=== PATIENT | male | born 1950 | race American Indian/Alaskan Native ===

== ENCOUNTER 2018-04-02 23:50 | Inpatient (IN) | payer MEDICARE ==
[2018-04-03] MEDS ORDERED: NACL 0.9% 1000 ML IV ONE (00:14)
--- NOTE | 2018-04-03 00:31 | Emergency Department Report ---
HPI - General Chief Complaint: Dyspnea/Respdistress Time Seen by Provider: 04/03/18 00:06 - HPI HPI: Room 20 The patient is a 68-year-old male presenting with a chief complaint of shortness of breath. Patient began complaining of shortness of breath yesterday. Patient had a cough productive of clear sputum. Family states patient stayed in bed all day today and did not want to come to the hospital. states the patient had a subjective fever. Yesterday the patient began complaining of substernal chest tightness that has been constant but currently not present. The patient has exhibited dyspnea on exertion. He denies any recent flights or long car trips. Patient denies any other forms of pain Location: Lungs, chest Duration: [See above] Quality: Tightness, shortness of breath Severity: Moderate Modifying factors: [see above] Context: [see above] Mode of transportation: [not driving] ED Past Medical Hx - Past Medical History Previous Medical History?: Yes Hx Diabetes: Yes Additional medical history: Hypercholesterolemia - Surgical History Past Surgical History?: No - Family History Family history: no significant - Social History Smoking Status: Former Smoker (none since 1984) Substance Use Type: None - Medications Home Medications: Home Medications Medication Instructions Recorded Confirmed Last Taken Type Cimetidine 300 mg PO BID 04/03/18 04/03/18 Unknown History Glipizide 5 mg PO DAILY 04/03/18 04/03/18 Unknown History Losartan 100 mg PO DAILY 04/03/18 04/03/18 Unknown History Mirtazapine 30 mg PO HS 04/03/18 04/03/18 Unknown History Pravastatin 20 mg PO HS 04/03/18 04/03/18 Unknown History Tamsulosin 0.4 mg PO DAILY 04/03/18 04/03/18 Unknown History ED Review of Systems ROS: Stated complaint: SHORTNESS OF BREATH Other details as noted in HPI Constitutional: fever (subjective) Eyes: denies: eye pain ENT: denies: throat pain Respiratory: shortness of breath, SOB with exertion Cardiovascular: chest pain Gastrointestinal: denies: abdominal pain Genitourinary: denies: dysuria Musculoskeletal: denies: back pain Neurological: denies: headache Physical Exam - Physical Exam Vital Signs: Vital Signs 04/02/18 23:59 Temperature 97.9 F Pulse Rate 129 H Respiratory 16 Rate Blood Pressure 114/79 O2 Sat by Pulse 96 Oximetry Physical Exam: GENERAL: The patient is well-developed well-nourished male sitting on stretcher receiving BiPAP exhibiting moderate respiratory distress. [] HEENT: Normocephalic. Atraumatic. Extraocular motions are intact. Patient has moist mucous membranes. NECK: Supple. Trachea midline CHEST/LUNGS: Clear to auscultation. There is increased work of breathing HEART/CARDIOVASCULAR: Regular. There is tachycardia. There is no gallop rub or murmur. ABDOMEN: Abdomen is soft, nontender. Patient has normal bowel sounds. There is no abdominal distention. SKIN: There is no rash. There is no edema. There is no diaphoresis. NEURO: The patient is awake, alert, and oriented. The patient is cooperative. The patient has normal speech MUSCULOSKELETAL:There is no evidence of acute injury. ED Course Vital Signs 04/02/18 23:59 Temperature 97.9 F Pulse Rate 129 H Respiratory 16 Rate Blood Pressure 114/79 O2 Sat by Pulse 96 Oximetry ED Medical Decision Making - Lab Data Result diagrams: 04/03/18 00:22 04/03/18 00:22 Laboratory Tests 04/03/18 04/03/18 04/03/18 00:10 00:22 00:22 WBC 21.1 H RBC 5.18 H Hgb 15.3 H Hct 46.1 H MCV 89 MCH 30 MCHC 33 RDW 16.1 H Plt Count 160 PT INR APTT POC ABG pH 7.423 POC ABG pCO2 26.4 L POC ABG pO2 63 L POC ABG HCO3 17.2 POC ABG Total CO2 18 POC ABG O2 Sat 93 POC ABG Base Excess -7 FiO2 80 Sodium 132 L Potassium 4.8 Chloride 98.7 Carbon Dioxide 19 L Anion Gap 19 BUN 23 H Creatinine 1.7 H Estimated GFR 48 BUN/Creatinine Ratio 14 Glucose 264 H Calcium 8.9 Total Creatine Kinase CK-MB (CK-2) CK-MB (CK-2) Rel Index Troponin T NT-Pro-B Natriuret Pep Triglycerides Cholesterol LDL Cholesterol Direct HDL Cholesterol Cholesterol/HDL Ratio 04/03/18 04/03/18 04/03/18 00:22 00:22 00:22 WBC RBC Hgb Hct MCV MCH MCHC RDW Plt Count PT 14.4 INR 1.06 APTT 22.8 L POC ABG pH POC ABG pCO2 POC ABG pO2 POC ABG HCO3 POC ABG Total CO2 POC ABG O2 Sat POC ABG Base Excess FiO2 Sodium Potassium Chloride Carbon Dioxide Anion Gap BUN Creatinine Estimated GFR BUN/Creatinine Ratio Glucose Calcium Total Creatine Kinase 122 CK-MB (CK-2) 3.6 CK-MB (CK-2) Rel Index 2.9 Troponin T 0.067 H NT-Pro-B Natriuret Pep 3510 H Triglycerides 147 Cholesterol 162 LDL Cholesterol Direct 87 HDL Cholesterol 62 H Cholesterol/HDL Ratio 2.61 - EKG Data -: EKG Interpreted by Me EKG shows normal: sinus rhythm Rate: tachycardia (127 bpm) - Radiology Data Radiology results: report reviewed (chest x-ray), image reviewed (chest x-ray) interpreted by me: Chest x-ray-left upper lobe haziness/pneumonia [facility] [address] [place] [address] XRay Report Signed Patient: ERNIN CHAUHAN MR#: [id number] : 1950 Acct:[id number] Age/Sex: 68 / M ADM Date: 04/02/18 Loc: ED Attending Dr: Ordering Physician: EVONNE MONK MD Date of Service: 04/02/18 Procedure(s): XR chest routine 2V Accession Number(s): [id number] cc: EVONNE MONK MD Fluoro Time In Minutes: FINAL REPORT EXAM: XR CHEST ROUTINE 2V HISTORY: Shortness of breath COMPARISON: None available. FINDINGS: Frontal view(s) of the chest obtained. Cardiac silhouette within normal limits. Patchy airspace consolidation left upper lobe concerning for pneumonia. Possible small left-sided pleural effusion. No pneumothorax. IMPRESSION: Left upper lobe consolidation concerning for pneumonia. Probable small left-sided pleural effusion. Followup exam suggested to ensure resolution. Transcribed By: LMA Dictated By: JOSEPH MILTON MD Electronically Authenticated By: JOSEPH MILTON MD Signed Date/Time: 04/03/18155 DD/ 5 TD/TT: 04/03/18155 - Differential Diagnosis pneumonia, ACS, PE, pericarditis, GERD, pneumothorax Critical care attestation.: If time is entered above; I have spent that time in minutes in the direct care of this critically ill patient, excluding procedure time. ED Disposition Clinical Impression: Hypoxia, Shortness of breath, Pneumonia, Leukocytosis, Renal insufficiency, Elevated troponin Disposition: DC-09 OP ADMIT IP TO THIS HOSP Is pt being admited?: Yes Does the pt Need Aspirin: No Condition: Serious Instructions: Bacterial Pneumonia (ED) Time of Disposition: 02:06 (hospitalist paged (Dr. Evangelina Wu))
[2018-04-03 00:51] LABS: INR 1.06 (0.87-1.13); Partial Thromboplastin Time 22.8 Sec. (24.2-36.6)
[2018-04-03 00:54] LABS: Hematocrit 46.1 % (35.5-45.6); Hemoglobin 15.3 gm/dl (11.8-15.2); Mean Corpuscular HGB Conc 33 % (32-34); Mean Corpuscular Hemoglobin 30 pg (28-32); Mean Corpuscular Volume 89 fl (84-94); Platelet Count 160 K/mm3 (140-440); Red Blood Count 5.18 M/mm3 (3.65-5.03); Red Cell Distribution Width 16.1 % (13.2-15.2)
[2018-04-03 00:58] LABS: Calcium 8.9 mg/dL (8.4-10.2)
[2018-04-03 01:00] LABS: Creatine Kinase MB 3.6 ng/mL (0.0-4.0)
[2018-04-03] MEDS ORDERED: PLAVIX PO ONE (01:22)
--- NOTE | 2018-04-03 02:00 | XRay Report ---
FINAL REPORT EXAM: XR CHEST ROUTINE 2V HISTORY: Shortness of breath COMPARISON: None available. FINDINGS: Frontal view(s) of the chest obtained. Cardiac silhouette within normal limits. Patchy airspace consolidation left upper lobe concerning for pneumonia. Possible small left-sided pleural effusion. No pneumothorax. IMPRESSION: Left upper lobe consolidation concerning for pneumonia. Probable small left-sided pleural effusion. Followup exam suggested to ensure resolution.
[2018-04-03 02:03] LABS: Chol/HDL Ratio 2.61 %
[2018-04-03] MEDS ORDERED: ZOFRAN IV PRN (02:56)
[2018-04-03] MEDS ORDERED: SODIUM CHLORIDE FLUSH SYRINGE 10 ML IV PRN (02:56)
[2018-04-03] MEDS ORDERED: TYLENOL PO PRN (02:56)
--- NOTE | 2018-04-03 03:13 | History and Physical Report ---
History of Present Illness Date of examination: 04/03/18 History of present illness: 68-year-old and a history of hypertension, diabetes, hyperlipidemia comes emergency room because he developed shortness of breath yesterday with dyspnea and exertion. Also complaining of a cough productive of clear phlegm, fever and chills, nausea. No weight loss, night sweats, hemoptysis, sick contacts Review of systems Constitutional: no weight loss, chills, fever Ears, eyes, nose, mouth and throat: no nasal congestion, no nasal discharge, no sinus pressure, no vision change, no red eye. Neck: No neck pain or rigidity. Cardiovascular: no chest pain, palpitations Respiratory: + cough, shortness of breath Gastrointestinal: no abdominal pain hematochezia Genitourinary : no frequency , no hematuria Musculoskeletal: no joint swelling or muscle ache Integumentary: no rash, no pruritis Neurological: no parathesias, no focal weakness Endocrine: no cold or heat intolerance, no polyuria or polydipsia Hematologic/Lymphatic: no easy bruising, no easy bleeding, no gland swelling Allergic/Immunologic: no urticaria, no angioedema. PAST MEDICAL HISTORY: Hypertension, diabetes, hyperlipidemia PAST SURGICAL HISTORY: None SOCIAL HISTORY: No alcohol, no drugs, tobacco FAMILY HISTORY: Hypertension Medications and Allergies Allergies Allergy/AdvReac Type Severity Reaction Status Date / Time No Known Allergies Allergy Verified 04/02/18 23:56 Home Medications Medication Instructions Recorded Confirmed Last Taken Type Cimetidine 300 mg PO BID 04/03/18 04/03/18 Unknown History Glipizide 5 mg PO DAILY 04/03/18 04/03/18 Unknown History Losartan 100 mg PO DAILY 04/03/18 04/03/18 Unknown History Mirtazapine 30 mg PO HS 04/03/18 04/03/18 Unknown History Pravastatin 20 mg PO HS 04/03/18 04/03/18 Unknown History Tamsulosin 0.4 mg PO DAILY 04/03/18 04/03/18 Unknown History Active Meds: Active Medications Azithromycin 500 mg/ Sodium (Chloride) 250 mls @ 250 mls/hr IV Q24HR TI Ceftriaxone Sodium (Rocephin/Ns 2 Gm/100 Ml) 2 gm in 100 mls @ 200 mls/hr IV Q24H TI; Protocol Exam - Physical Exam Narrative exam: Gen. appearance: Patient lying in bed, no apparent distress, on BiPAP HEENT: Normocephalic, atraumatic, pupils equally round and reactive to light, eyes are , extraocular movement intact, and no sclericterus,. No JVD or thyromegaly or nodule,neck supple, no carotid bruit ,mucous membranes moist, no exudate or erythema Heart: S1, S2, regular rate and rhythm Lungs: Crackles, breathing comfortable Abdomen: Positive bowel sounds,non tender, nondistended, no organomegaly Extremity:no edema cyanosis, clubbing Skin: no rash, dry, warm Neuro: Oriented 3, cranial nerves II-12 intact, speech is fluent, motor and sensory intact - Constitutional Vitals: Temp Pulse Resp BP Pulse Ox 97.9 F 107 H 16 136/82 96 04/02/18 23:59 04/03/18 02:00 04/03/18 02:00 04/03/18 02:00 04/03/18 02:00 Results - Labs CBC & Chem 7: 04/04/18 04:44 04/04/18 04:44 Labs: Abnormal lab results 04/03/18 04/03/18 04/03/18 Range/Units 00:10 00:22 00:22 WBC 21.1 H (4.5-11.0) K/mm3 RBC 5.18 H (3.65-5.03) M/mm3 Hgb 15.3 H (11.8-15.2) gm/dl Hct 46.1 H (35.5-45.6) % RDW 16.1 H (13.2-15.2) % APTT (24.2-36.6) Sec. POC ABG pCO2 26.4 L (35-45) POC ABG pO2 63 L (80-105) Sodium 132 L (137-145) mmol/L Carbon Dioxide 19 L (22-30) mmol/L BUN 23 H (9-20) mg/dL Creatinine 1.7 H (0.8-1.5) mg/dL Glucose 264 H (75-100) mg/dL Troponin T (0.00-0.029) ng/mL NT-Pro-B Natriuret Pep (0-900) pg/mL HDL Cholesterol (40-59) mg/dL 04/03/18 04/03/18 Range/Units 00:22 00:22 WBC (4.5-11.0) K/mm3 RBC (3.65-5.03) M/mm3 Hgb (11.8-15.2) gm/dl Hct (35.5-45.6) % RDW (13.2-15.2) % APTT 22.8 L (24.2-36.6) Sec. POC ABG pCO2 (35-45) POC ABG pO2 (80-105) Sodium (137-145) mmol/L Carbon Dioxide (22-30) mmol/L BUN (9-20) mg/dL Creatinine (0.8-1.5) mg/dL Glucose (75-100) mg/dL Troponin T 0.067 H (0.00-0.029) ng/mL NT-Pro-B Natriuret Pep 3510 H (0-900) pg/mL HDL Cholesterol 62 H (40-59) mg/dL - Imaging and Cardiology EKG: report reviewed Chest x-ray: report reviewed Assessment and Plan Assessment Sepsis Acute respiratory failure, hypoxic community-acquired pneumonia Hypertension Diabetes type 2 Hyperlipidemia Plan Admit to medicine Continue BiPAP, start IV antibiotics, follow cultures Check Fingersticks, cardiac enzymes initiate insulin sliding scale Start DVT prophylaxis, outpatient medications
[2018-04-03 05:04] LABS: Band Neutrophils # (Manual) 0.1 K/mm3; Basophils % (Manual) 0 % (0.0-1.8); Eosinophils % (Manual) 0 % (0.0-4.3); Monocytes % (Manual) 2.5 % (0.0-7.3); Myelocytes # (Manual) 0.1 K/mm3; Total Cells Counted 200
[2018-04-03 05:05] LABS: Platelet Estimate Consistent w Auto
[2018-04-03] MEDS ORDERED: NACL 0.45% 1000 ML 1,000 ML IV SCH (07:00)
[2018-04-03] MEDS ORDERED: ROCEPHIN/NS 2 GM/100 ML 2 GM/100 ML BAG IV SCH (08:00)
[2018-04-03] MEDS: DUONEB *Not for PRN Use IH SCH ×3 (08:29→19:37)
[2018-04-03] MEDS ORDERED: ROCEPHIN/NS 1 GM/50 ML 1 GM/50 ML BAG IV SCH (10:00)
[2018-04-03] MEDS ORDERED: ZITHROMAX 500 MG in NACL 0.9% 250ML 250 ML IV SCH (10:00)
[2018-04-03] MEDS ORDERED: LOVENOX SUB-Q SCH (10:00)
[2018-04-03] MEDS ORDERED: ZITHROMAX PO SCH (10:00)
[2018-04-03] MEDS ORDERED: ZITHROMAX ONE (11:42)
[2018-04-03] MEDS: SODIUM CHLORIDE FLUSH SYRINGE 10 ML IV SCH ×2 (11:45→22:44)
--- NOTE | 2018-04-03 16:56 | Progress Note ---
Assessment and Plan Assessment and plan: Mr. Mauro is a 68 yo man with a history of hypertension, NIDDM, BPH, ex cigarette smoker and dyslipidemia who presented with SOB and cough. WBC 21.1, HR 129, Cr 1.7(first visit here), Bun 23, pO2 only 63 on 80% FiO2 * 2v CXR reported Left upper lobe consolidation concerning for pneumonia, probable small left pleural effusion, -Acute hypoxic respiratory failure, requiring very high oxygen: on bipap, consult Pulmonology, on iv steriods, aggressively treat the pneumonia -Sepsis Pneumonia: treat with abx, ivf -BRIGHT aspiration pneumonia, atypical location: treat with iv zosyn, iv vancomycin , iv levaquin, consult ID, descalated abx if cultures negative. -EMELY, vasomotor nephropathy, poa, (first visit in EMR, no baseline): continue 1/ 2nss, repeat levels -Accelerated hypertension: low salt/cardiac diet, treat with antihypertensive -NIDDM: add ssi, ada diet -DVT prophylaxis: sq heparin CCT 35 minutes History Interval history: Patient was seen and examined. Follow-up on current diagnosis of sob, still present, bipap helping. Overnight uneventful. Patient denies any chest pain, nausea/vomiting or severe headaches. Imaging, nursing note, chart, labs and old chart reviewed. Discussed with patient. at bedside. Hospitalist Physical - Physical exam Narrative exam: GEN: WDWN, ill appearing, moderate accessory m. usage, Awake, Alert, Orientated HEENT: NCAT, EOMI, PERRL, OP Clear NECK: supple, no adenopathy, no thyromegaly, no JVD CVS/HEART: regular tachy, normal S1S2, pulses present bilaterally CHEST/LUNGS: diminised, coarse bs left >right with crackles Symmetrical chest expansion, good air entry bilaterally GI/Abdomen: soft, NTND, good bowel sounds, no guarding or rebound /Bladder: no suprapubic tenderness, no CVA or paraspinal tenderness EXT/Skin: no c/c/e, no obvious rash MSK: FROM x 4 Neuro: CN 2-12 grossly intact, no new focal deficits Psych: calm - Constitutional Vitals: Temp Pulse Resp BP Pulse Ox 96.0 F L 105 H 18 165/94 93 04/03/18 13:52 04/03/18 16:02 04/03/18 13:52 04/03/18 13:52 04/03/18 13:52 Results - Labs CBC & Chem 7: 04/03/18 00:22 04/03/18 00:22 Labs: Laboratory Last Values WBC 21.1 K/mm3 (4.5-11.0) H 04/03/18 00:22 RBC 5.18 M/mm3 (3.65-5.03) H 04/03/18 00:22 Hgb 15.3 gm/dl (11.8-15.2) H 04/03/18 00:22 Hct 46.1 % (35.5-45.6) H 04/03/18 00:22 MCV 89 fl (84-94) 04/03/18 00:22 MCH 30 pg (28-32) 04/03/18 00:22 MCHC 33 % (32-34) 04/03/18 00:22 RDW 16.1 % (13.2-15.2) H 04/03/18 00:22 Plt Count 160 K/mm3 (140-440) 04/03/18 00:22 Add Manual Diff Complete 04/03/18 00:22 Total Counted 200 04/03/18 00:22 Seg Neuts % (Manual) 86.0 % (40.0-70.0) H 04/03/18 00:22 Band Neutrophils % 0.5 % 04/03/18 00:22 Lymphocytes % (Manual) 9.5 % (13.4-35.0) L 04/03/18 00:22 Reactive Lymphs % (Man) 0 % 04/03/18 00:22 Monocytes % (Manual) 2.5 % (0.0-7.3) 04/03/18 00:22 Eosinophils % (Manual) 0 % (0.0-4.3) 04/03/18 00:22 Basophils % (Manual) 0 % (0.0-1.8) 04/03/18 00:22 Metamyelocytes % 1.0 % 04/03/18 00:22 Myelocytes % 0.5 % 04/03/18 00:22 Promyelocytes % 0 % 04/03/18 00:22 Blast Cells % 0 % 04/03/18 00:22 Nucleated RBC % Not Reportable 04/03/18 00:22 Seg Neutrophils # Man 18.1 K/mm3 (1.8-7.7) H 04/03/18 00:22 Band Neutrophils # 0.1 K/mm3 04/03/18 00:22 Lymphocytes # (Manual) 2.0 K/mm3 (1.2-5.4) 04/03/18 00:22 Abs React Lymphs (Man) 0.0 K/mm3 04/03/18 00:22 Monocytes # (Manual) 0.5 K/mm3 (0.0-0.8) 04/03/18 00:22 Eosinophils # (Manual) 0.0 K/mm3 (0.0-0.4) 04/03/18 00:22 Basophils # (Manual) 0.0 K/mm3 (0.0-0.1) 04/03/18 00:22 Metamyelocytes # 0.2 K/mm3 04/03/18 00:22 Myelocytes # 0.1 K/mm3 04/03/18 00:22 Promyelocytes # 0.0 K/mm3 04/03/18 00:22 Blast Cells # 0.0 K/mm3 04/03/18 00:22 WBC Morphology Not Reportable 04/03/18 00:22 Hypersegmented Neuts Not Reportable 04/03/18 00:22 Hyposegmented Neuts Not Reportable 04/03/18 00:22 Hypogranular Neuts Not Reportable 04/03/18 00:22 Smudge Cells Not Reportable 04/03/18 00:22 Toxic Granulation Not Reportable 04/03/18 00:22 Toxic Vacuolation Not Reportable 04/03/18 00:22 Dohle Bodies Not Reportable 04/03/18 00:22 Pelger-Huet Anomaly Not Reportable 04/03/18 00:22 Chapo Rods Not Reportable 04/03/18 00:22 Platelet Estimate Consistent w auto 04/03/18 00:22 Clumped Platelets Not Reportable 04/03/18 00:22 Plt Clumps, EDTA Not Reportable 04/03/18 00:22 Large Platelets Not Reportable 04/03/18 00:22 Giant Platelets Not Reportable 04/03/18 00:22 Platelet Satelliting Not Reportable 04/03/18 00:22 Plt Morphology Comment Not Reportable 04/03/18 00:22 RBC Morphology Not Reportable 04/03/18 00:22 Dimorphic RBCs Not Reportable 04/03/18 00:22 Polychromasia Not Reportable 04/03/18 00:22 Hypochromasia Not Reportable 04/03/18 00:22 Poikilocytosis Not Reportable 04/03/18 00:22 Anisocytosis Not Reportable 04/03/18 00:22 Microcytosis Not Reportable 04/03/18 00:22 Macrocytosis Not Reportable 04/03/18 00:22 Spherocytes Not Reportable 04/03/18 00:22 Pappenheimer Bodies Not Reportable 04/03/18 00:22 Sickle Cells Not Reportable 04/03/18 00:22 Target Cells Not Reportable 04/03/18 00:22 Tear Drop Cells Not Reportable 04/03/18 00:22 Ovalocytes Not Reportable 04/03/18 00:22 Helmet Cells Not Reportable 04/03/18 00:22 [place] Bodies Not Reportable 04/03/18 00:22 [place] Rings Not Reportable 04/03/18 00:22 Miriam Cells Not Reportable 04/03/18 00:22 Bite Cells Not Reportable 04/03/18 00:22 Crenated Cell Not Reportable 04/03/18 00:22 Elliptocytes Not Reportable 04/03/18 00:22 Acanthocytes (Spur) Not Reportable 04/03/18 00:22 Rouleaux Not Reportable 04/03/18 00:22 Hemoglobin C Crystals Not Reportable 04/03/18 00:22 Schistocytes Not Reportable 04/03/18 00:22 Malaria parasites Not Reportable 04/03/18 00:22 Jacob Bodies Not Reportable 04/03/18 00:22 Hem Pathologist Commnt No 04/03/18 00:22 PT 14.4 Sec. (12.2-14.9) 04/03/18 00:22 INR 1.06 (0.87-1.13) 04/03/18 00:22 APTT 22.8 Sec. (24.2-36.6) L 04/03/18 00:22 POC ABG pH 7.423 (7.35-7.45) 04/03/18 00:10 POC ABG pCO2 26.4 (35-45) L 04/03/18 00:10 POC ABG pO2 63 (80-105) L 04/03/18 00:10 POC ABG HCO3 17.2 04/03/18 00:10 POC ABG Total CO2 18 04/03/18 00:10 POC ABG O2 Sat 93 04/03/18 00:10 POC ABG Base Excess -7 04/03/18 00:10 FiO2 80 % 04/03/18 00:10 Sodium 132 mmol/L (137-145) L 04/03/18 00:22 Potassium 4.8 mmol/L (3.6-5.0) 04/03/18 00:22 Chloride 98.7 mmol/L (98-107) 04/03/18 00:22 Carbon Dioxide 19 mmol/L (22-30) L 04/03/18 00:22 Anion Gap 19 mmol/L 04/03/18 00:22 BUN 23 mg/dL (9-20) H 04/03/18 00:22 Creatinine 1.7 mg/dL (0.8-1.5) H 04/03/18 00:22 Estimated GFR 48 ml/min 04/03/18 00:22 BUN/Creatinine Ratio 14 % 04/03/18 00:22 Glucose 264 mg/dL (75-100) H 04/03/18 00:22 POC Glucose 238 (70-105) H 04/03/18 11:57 Lactic Acid 4.50 mmol/L (0.7-2.0) H* 04/03/18 14:48 Calcium 8.9 mg/dL (8.4-10.2) 04/03/18 00:22 Total Creatine Kinase 122 units/L (55-170) 04/03/18 00:22 CK-MB (CK-2) 3.6 ng/mL (0.0-4.0) 04/03/18 00:22 CK-MB (CK-2) Rel Index 2.9 (0-4) 04/03/18 00:22 Troponin T 0.067 ng/mL (0.00-0.029) H 04/03/18 00:22 NT-Pro-B Natriuret Pep 3510 pg/mL (0-900) H 04/03/18 00:22 Triglycerides 147 mg/dL (2-149) 04/03/18 00:22 Cholesterol 162 mg/dL (50-199) 04/03/18 00:22 LDL Cholesterol Direct 87 mg/dL (50-130) 04/03/18 00:22 HDL Cholesterol 62 mg/dL (40-59) H 04/03/18 00:22 Cholesterol/HDL Ratio 2.61 % 04/03/18 00:22
[2018-04-03] MEDS ORDERED: VANCOMYCIN PHARMACY TO DOSE IV SCH (17:00)
[2018-04-03] MEDS ORDERED: D50W (25GM) Syringe IV PRN (17:03)
[2018-04-03] MEDS ORDERED: ZOSYN/NS 4.5GM/100ML 4.5 GM/100 ML VIAL IV SCH (17:30)
[2018-04-03] MEDS ORDERED: LEVAQUIN 750MG/150ML 750 MG/150 ML BAG IV SCH (17:30)
[2018-04-03] MEDS: ASPIRIN PO SCH ×2 (19:28→19:40)
[2018-04-03] MEDS ORDERED: VANCOMYCIN 2,000 MG in NACL 0.9% 500 ML 500 ML IV ONE (20:00)
[2018-04-03] MEDS ORDERED: NON-FORMULARY (Pravastatin 20 MG) PO SCH (22:00)
[2018-04-03] MEDS ORDERED: HumaLOG SUB-Q SCH (22:00)
[2018-04-03] MEDS ORDERED: NON-FORMULARY (Tamsulosin 0.4 MG) PO SCH (22:00)
[2018-04-03] MEDS ORDERED: REMERON PO SCH (22:00)
[2018-04-03] MEDS ORDERED: FLOMAX PO SCH (22:00)
[2018-04-03] MEDS ORDERED: PRAVACHOL PO SCH (22:00)
[2018-04-03] MEDS ORDERED: MIRTAZAPINE 30 MG PO SCH (22:00)
[2018-04-03] MEDS: ZOSYN/NS 4.5GM/100ML 4.5 GM/100 ML VIAL IV SCH (22:43)
[2018-04-04 02:32] VITALS: BP 158/99
[2018-04-04] MEDS: DUONEB *Not for PRN Use IH SCH ×2 (04:49→08:01)
--- NOTE | 2018-04-04 04:57 | Event Note ---
Date: 04/04/18 Respiratory call to say with patient with increase respiratory rate on BIPAP give a dose of steroid, nebulizer treatments hold IV fluid for now, give lasix do ABG Patienrt states he feels better, RR improving, close monitoring Code MET 0606 Patient mininally responsive He was intubated He subsequently lost his pulse, CODE blue called ACLS protocol initiated, please refer to sheet for details There was ROSC but pulse was lost CPR continued, the patient was pronunce at 0650 Family at bedside, notified
[2018-04-04] MEDS: ZOSYN/NS 4.5GM/100ML 4.5 GM/100 ML VIAL IV SCH (05:30)
[2018-04-04 06:24] LABS: BUN/Creatinine Ratio 25; Blood Urea Nitrogen 30 mg/dL (9-20); Calcium 8.4 mg/dL (8.4-10.2); Hemolysis Index 227
[2018-04-04 06:48] LABS: Hematocrit 57.4 % (35.5-45.6)
[2018-04-04 06:49] LABS: Hemoglobin 18.9 gm/dl (11.8-15.2); Mean Corpuscular HGB Conc 33 % (32-34); Mean Corpuscular Hemoglobin 29 pg (28-32); Mean Corpuscular Volume 88 fl (84-94); Platelet Count 191 K/mm3 (140-440); Red Blood Count 6.53 M/mm3 (3.65-5.03); Red Cell Distribution Width 16.3 % (13.2-15.2)
[2018-04-04] MEDS ORDERED: GLUCOTROL PO SCH (08:00)
[2018-04-04] MEDS ORDERED: NON-FORMULARY (Glipizide 5 MG) PO SCH (10:00)
[2018-04-04] MEDS ORDERED: COZAAR PO SCH (10:00)
[2018-04-04] MEDS ORDERED: LOVENOX SUB-Q SCH (10:00)
[2018-04-04] MEDS ORDERED: NON-FORMULARY (Losartan 100 MG) PO SCH (10:00)
--- NOTE | 2018-04-04 12:14 | Death Summary ---
Summary - Providers Consults: 04/03/18 16:42 Consult to Physician [CONS] Routine Comment: called answ. serv. [place] Consulting Provider: JUAN C MILLER Physician Instructions: Reason For Exam: respiratory failure on bipap 04/03/18 16:56 Consult to Physician [CONS] Routine Comment: left message/[place] Consulting Provider: MARTA BUCK Physician Instructions: Reason For Exam: BRIGHT pneumonia, sepsis on bipap 04/03/18 17:24 Consult to Physician [CONS] Routine Comment: answering service/[place]/ [place] Consulting Provider: BELINDA NAZARIO Physician Instructions: Reason For Exam: Evaluated troponin Attending: NOEMY BEST - summary Date of admission: 04/03/18 02:56 Date of : 04/04/18 Reason for admission: SOB Significant findings: Mr. Mauro is a 68 yo man with a history of hypertension, NIDDM, BPH, ex cigarette smoker and dyslipidemia who presented with SOB and cough. WBC 21.1, HR 129, Cr 1.7(first visit here), Bun 23, pO2 only 63 on 80% FiO2 * 2v CXR reported Left upper lobe consolidation concerning for pneumonia, probable small left pleural effusion -Acute hypoxic respiratory failure, requiring very high oxygen: on bipap, consult Pulmonology, on iv steriods, aggressively treat the pneumonia -Sepsis Pneumonia: treat with abx, ivf -BRIGHT aspiration pneumonia, atypical location: treat with iv zosyn, iv vancomycin , iv levaquin, consult ID, deescalated abx if cultures negative. -EMELY, vasomotor nephropathy, poa, (first visit in EMR, no baseline): continue 1/ 2nss, repeat levels -Accelerated hypertension: low salt/cardiac diet, treat with antihypertensive -Elevated troponin: repeat levels and consult Cardiology, order ECHO. -NIDDM: add ssi, ada diet -DVT prophylaxis: sq heparin CODE blue called April 04 around 6am, managed by Dr. Evangelina Wu and pronounced by Dr. Wu Cause of : Pneumonia most likely
[2018-04-04] MEDS ORDERED: INTROPIN DRIP 800 MG/D5W 250 ML IV ONE (13:45)
[2018-04-04] MEDS ORDERED: ADRENALIN ONE (13:45)
[2018-04-04] MEDS ORDERED: SODIUM BICARBONATE IV ONE (13:45)
[2018-04-04] MEDS ORDERED: ADRENALIN IV ONE (13:45)
[2018-04-04] MEDS ORDERED: D50W (25GM) Syringe IV ONE (13:45)
[2018-04-04] MEDS ORDERED: HEPARIN SUB-Q SCH (16:56)
[2018-04-04] MEDS ORDERED: VANCOMYCIN 1,500 MG in NACL 0.9% 500 ML 500 ML IV SCH (20:00)
== END 2018-04-04 10:00 | DRG 871 ==
LOC: ED 23:50 → 4A 04-03 02:56 → 2B-ACE 04-03 10:30
PROVIDERS: ADMIT Internal Medicine; ATTEND Internal Medicine
PROC: 5A09357 Assistance with Respiratory Ventilation, Less than 24 Consecutive Hours, Continuous Positive Airway Pressure (ICD-10-PCS; principal; 2018-04-03)
PROC: 4A033R1 Measurement of Arterial Saturation, Peripheral, Percutaneous Approach (ICD-10-PCS; 2018-04-03)
PROC: 5A12012 Performance of Cardiac Output, Single, Manual (ICD-10-PCS; 2018-04-04)
DX: A41.9 Sepsis, unspecified organism (principal); J96.01 Acute respiratory failure with hypoxia; J69.0 Pneumonitis due to inhalation of food and vomit; N17.0 Acute kidney failure with tubular necrosis; E11.9 Type 2 diabetes mellitus without complications; E78.5 Hyperlipidemia, unspecified; I10 Essential (primary) hypertension; N40.0 Benign prostatic hyperplasia without lower urinary tract symptoms; Z82.49 Family history of ischemic heart disease and other diseases of the circulatory system; Z87.891 Personal history of nicotine dependence; Z79.84 Long term (current) use of oral hypoglycemic drugs; Z79.899 Other long term (current) drug therapy
CPT/HCPCS: 31500; 36415; 36600; 71045; 80048; 80061; 82140; 82550; 82553; 82803; 82962; 83880; 84484; 85007; 85025; 85027; 85610; 85730; 87040; 93005; 93010; 94640; 94660; A9270-GY; J0171; J0456; J0696; J1265; J1815; J1956; J2543; J2920; J2930; J3370; J7030; J7040; J7050